=== PATIENT | male | born 1955 | race Asian ===

== ENCOUNTER → 2017-02-18 | Outpatient (CLI) | payer BC ==
[~2017-02-18] MED LIST: FLUT9.9S NAS; HYDR-3138 PO
== END | disposition home or self-care (01) ==
LOC: CFH 06:42
PROVIDERS: ATTEND Specialist
DX: I35.1 Nonrheumatic aortic (valve) insufficiency (principal); I51.7 Cardiomegaly; C34.12 Malignant neoplasm of upper lobe, left bronchus or lung; Z87.891 Personal history of nicotine dependence
CPT/HCPCS: 93306

== ENCOUNTER → 2017-10-02 | Outpatient (CLI) | payer MEDICARE ==
[~2017-10-02] MED LIST changes: -HYDR-3138 PO; +HYDR-3237 PO; +OMNIPAQUE 350 MG/ML, 100ML BOTTLE ONE
== END ==
LOC: CFH 09:19
PROVIDERS: ATTEND Specialist
DX: C34.12 Malignant neoplasm of upper lobe, left bronchus or lung (principal); J90 Pleural effusion, not elsewhere classified; N28.1 Cyst of kidney, acquired
CPT/HCPCS: 71260; 74160; Q9967

== ENCOUNTER → 2017-12-19 | Outpatient (CLI) | payer MEDICARE | LOC: CFH 11:04 | PROVIDERS: ATTEND Specialist | DX: C34.12 Malignant neoplasm of upper lobe, left bronchus or lung (principal) | CPT/HCPCS: 71260; 74160; Q9967 ==

== ENCOUNTER → 2018-03-06 | Outpatient (CLI) | payer MEDICARE | END | disposition home or self-care (01) | LOC: CFH 09:14 | PROVIDERS: ATTEND Internal Medicine | DX: C34.12 Malignant neoplasm of upper lobe, left bronchus or lung (principal) | CPT/HCPCS: 71260; 74160; Q9967 ==

== ENCOUNTER 2018-04-25 06:13 | Emergency (ER) | payer MEDICARE ==
[~2018-04-25] VITALS: Ht 177.8 cm; Wt 79.8 kg
[~2018-04-25 06:13] MED LIST changes: -OMNIPAQUE 350 MG/ML, 100ML BOTTLE ONE
[2018-04-25] MEDS ORDERED: ONDANSETRON ODT 4 MG ONE (06:59)
[2018-04-25] MEDS ORDERED: MORPHINE SULFATE 4 MG/ML, 1ML ONE (06:59)
[2018-04-25] MEDS ORDERED: SODIUM CHLORIDE FLUSH 10ML SYR IVF ONE (07:00)
[2018-04-25] MEDS ORDERED: ONDANSETRON ODT 4 MG PO ONE (07:00)
[2018-04-25] MEDS ORDERED: MORPHINE SULFATE 4 MG/ML, 1ML IVPush PRN (07:00)
[2018-04-25 07:14] LABS: BASOPHILS # (AUTO) 0.03 x10^3/uL (0-0.1); BASOPHILS % (AUTO) 0 % (0-1); EOSINOPHILS # (AUTO) 0.02 x10^3/uL (0-0.4); EOSINOPHILS % (AUTO) 0 % (1-7); LYMPHOCYTES # (AUTO) 0.39 x10^3/uL (1-3.4); LYMPHOCYTES % (AUTO) 6 % (22-44); MD NO; MEAN CORPUSCULAR HEMOGLOBIN 29.8 pg (27.5-34.5); MEAN CORPUSCULAR HGB CONC 33.7 g/dL (33.2-36.2); MEAN CORPUSCULAR VOLUME 88.5 fL (81-97); MEAN PLATELET VOLUME 8.6 fL (7.4-10.4); MONOCYTES # (AUTO) 0.36 x10^3/uL (0.2-0.8); MONOCYTES % (AUTO) 5 % (2-9); NEUTROPHILS # (AUTO) 6.33 x10^3/uL (1.8-6.8); NEUTROPHILS % (AUTO) 89 % (42-75); PLATELET COUNT 159 x10^3/uL (130-400); RED BLOOD COUNT 5.13 x10^6/uL (4.38-5.82)
[2018-04-25 07:17] LABS: ALANINE AMINOTRANSFERASE 33 U/L (12-78); ALBUMIN 3.7 g/dL (3.4-5.0); ANION GAP 8 mmol/L (5-15); CALCIUM 8.8 mg/dL (8.5-10.1); CHLORIDE 112 mmol/L (98-107); CREATININE 1.63 mg/dL (0.7-1.3)
[2018-04-25 07:29] LABS: ALKALINE PHOSPHATASE 76 U/L (45-117); BILIRUBIN,TOTAL 0.6 mg/dL (0.2-1.0)
[2018-04-25] MEDS ORDERED: SODIUM CHLORIDE 0.9% 1,000ML IVBOLUS ONE (08:30)
[2018-04-25 10:46] LABS: MICROSCOPIC NOT IND
[2018-04-25 10:47] LABS: CULTURE INDICATED? NO
[2018-04-25 12:28] VITALS: BP 112/66
== END 2018-04-25 12:30 | disposition home or self-care (01) ==
LOC: ED 08:36
DX: N13.2 Hydronephrosis with renal and ureteral calculous obstruction (principal); N18.9 Chronic kidney disease, unspecified; C34.90 Malignant neoplasm of unspecified part of unspecified bronchus or lung; Z87.891 Personal history of nicotine dependence
CPT/HCPCS: 36415; 74177; 80053; 81003; 82550; 83690; 85025; 93005; 96361; 96374; 99285; J7030; Q0162

== ENCOUNTER 2018-05-08 15:14 | Inpatient (IN) | payer MEDICARE ==
[~2018-05-08] VITALS: Ht 177.8 cm; Wt 68.8 kg
[2018-05-08 16:00] LABS: BASOPHILS # (AUTO) 0.01 x10^3/uL (0-0.1); BASOPHILS % (AUTO) 0 % (0-1); EOSINOPHILS # (AUTO) 0.03 x10^3/uL (0-0.4); EOSINOPHILS % (AUTO) 0 % (1-7); LYMPHOCYTES # (AUTO) 0.31 x10^3/uL (1-3.4); LYMPHOCYTES % (AUTO) 5 % (22-44); MD NO; MEAN CORPUSCULAR HEMOGLOBIN 30.1 pg (27.5-34.5); MEAN CORPUSCULAR HGB CONC 33.7 g/dL (33.2-36.2); MEAN CORPUSCULAR VOLUME 89.4 fL (81-97); MEAN PLATELET VOLUME 8.2 fL (7.4-10.4); MONOCYTES # (AUTO) 0.22 x10^3/uL (0.2-0.8); MONOCYTES % (AUTO) 4 % (2-9); NEUTROPHILS # (AUTO) 5.59 x10^3/uL (1.8-6.8); NEUTROPHILS % (AUTO) 91 % (42-75); PLATELET COUNT 171 x10^3/uL (130-400); RED BLOOD COUNT 5.45 x10^6/uL (4.38-5.82); RED CELL DISTRIBUTION WIDTH 13.8 % (9.4-14.8)
[2018-05-08 16:10] LABS: INTERNATIONAL NORMALIZED RATIO 1.09 (0.93-1.1); PROTHROMBIN TIME 11.2 Seconds (9.6-11.5)
[2018-05-08 16:13] LABS: ALBUMIN 3.7 g/dL (3.4-5.0); ANION GAP 6 mmol/L (5-15); CALCIUM 8.9 mg/dL (8.5-10.1); CHLORIDE 109 mmol/L (98-107)
[2018-05-08 16:19] LABS: ALANINE AMINOTRANSFERASE 29 U/L (12-78); ALKALINE PHOSPHATASE 94 U/L (45-117); BILIRUBIN,TOTAL 0.4 mg/dL (0.2-1.0); TOTAL PROTEIN 7.7 g/dL (6.4-8.2)
[2018-05-08] MEDS ORDERED: OMNIPAQUE 350 MG/ML, 100ML BOTTLE ONE (16:53)
[2018-05-08] MEDS ORDERED: HEPARIN 25,000 UNITS/500ML PMX 500 ML ONE (17:08)
[2018-05-08] MEDS ORDERED: HEPARIN 5,000 UNITS/ML, 1ML ONE (17:11)
[2018-05-08] MEDS ORDERED: HEPARIN 5,000 UNITS/ML, 1ML IV ONE ×2 (17:30→19:30)
[2018-05-08] MEDS ORDERED: HEPARIN 25,000 UNITS/500ML PMX 500 ML IV PRN (17:30)
[2018-05-08] MEDS ORDERED: HEPARIN 5,000 UNITS/ML, 1ML IV PRN (17:30)
[2018-05-08] MEDS ORDERED: OSIM80TA PO (18:08)
[2018-05-08] MEDS ORDERED: MULT-257 PO (18:09)
[2018-05-08] MEDS ORDERED: CHOL400C PO (18:10)
[2018-05-08] MEDS ORDERED: ONDANSETRON 2MG/ML, 2ML IVPush PRN (19:00)
[2018-05-08] MEDS ORDERED: TEMAZEPAM 15 MG CAPSULE PO PRN (19:00)
[2018-05-08] MEDS ORDERED: morphine SULFATE 10 MG/ML, 1ML IVPush PRN (19:00)
[2018-05-08] MEDS ORDERED: LABETALOL 5MG/ML, 20ML IVPush PRN (19:00)
[2018-05-08] MEDS ORDERED: ONDANSETRON ODT 4 MG PO PRN (19:00)
[2018-05-08] MEDS ORDERED: ENALAPRILAT 1.25 MG/ML, 2ML IVPush PRN (19:00)
[2018-05-08] MEDS ORDERED: ACETAMINOPHEN 325 MG TABLET PO PRN (19:00)
[2018-05-08 19:19] VITALS: BP 142/98
[2018-05-08 22:33] VITALS: BP 142/98
[2018-05-09 00:09] VITALS: BP 129/88
[2018-05-09] MEDS: HEPARIN 5,000 UNITS/ML, 1ML IV PRN (00:31)
[2018-05-09 07:00] VITALS: BP 122/85
[2018-05-09 07:17] LABS: BASOPHILS # (AUTO) 0.01 x10^3/uL (0-0.1); BASOPHILS % (AUTO) 0 % (0-1); EOSINOPHILS # (AUTO) 0.15 x10^3/uL (0-0.4); EOSINOPHILS % (AUTO) 3 % (1-7); LYMPHOCYTES % (AUTO) 13 % (22-44); MD NO; MEAN CORPUSCULAR HEMOGLOBIN 29.9 pg (27.5-34.5); MEAN CORPUSCULAR HGB CONC 33.8 g/dL (33.2-36.2); MEAN CORPUSCULAR VOLUME 88.5 fL (81-97); MEAN PLATELET VOLUME 8.2 fL (7.4-10.4); MONOCYTES # (AUTO) 0.46 x10^3/uL (0.2-0.8); MONOCYTES % (AUTO) 9 % (2-9); NEUTROPHILS # (AUTO) 4.09 x10^3/uL (1.8-6.8); NEUTROPHILS % (AUTO) 76 % (42-75); PLATELET COUNT 166 x10^3/uL (130-400); RED BLOOD COUNT 5.11 x10^6/uL (4.38-5.82); RED CELL DISTRIBUTION WIDTH 13.8 % (9.4-14.8)
[2018-05-09 07:26] LABS: TROPONIN I 0.364 ng/mL (0.000-0.045)
[2018-05-09 07:28] LABS: ALANINE AMINOTRANSFERASE 25 U/L (12-78); ALBUMIN 3.3 g/dL (3.4-5.0); ANION GAP 6 mmol/L (5-15); CALCIUM 8.5 mg/dL (8.5-10.1); CHLORIDE 111 mmol/L (98-107); CREATININE 1.09 mg/dL (0.7-1.3)
[2018-05-09 07:30] LABS: ALKALINE PHOSPHATASE 84 U/L (45-117); BILIRUBIN,TOTAL 0.8 mg/dL (0.2-1.0); TOTAL PROTEIN 6.9 g/dL (6.4-8.2)
[2018-05-09] MEDS ORDERED: PIPERACILLIN/TAZO/PMX 3.375GM 50 ML IV SCH (09:00)
[2018-05-09] MEDS: LINEZOLID PMX 600MG/300ML 300 ML IV SCH (12:37)
[2018-05-09 13:04] VITALS: BP 121/80
[2018-05-09] MEDS: HEPARIN 25,000 UNITS/500ML PMX 500 ML IV PRN (17:27)
[2018-05-09] MEDS: PIPERACILLIN/TAZO/PMX 3.375GM 50 ML IV SCH ×2 (17:28→22:42)
[2018-05-09 20:38] VITALS: BP 110/71
[2018-05-10] MEDS: LINEZOLID PMX 600MG/300ML 300 ML IV SCH ×2 (00:31→12:04)
[2018-05-10 01:10] VITALS: BP 128/82
[2018-05-10] MEDS: PIPERACILLIN/TAZO/PMX 3.375GM 50 ML IV SCH ×4 (04:34→22:37)
[2018-05-10 08:39] VITALS: BP 127/82
[2018-05-10] MEDS ORDERED: TAGRISSO 80 MG PO SCH (09:00)
[2018-05-10 10:50] LABS: CLOSTRIDIUM DIFFICILE ANTIGEN NEGATIVE; CLOSTRIDIUM DIFFICILE TOXIN NEGATIVE (Negative)
[2018-05-10] MEDS: LOPERAMIDE 2 MG CAPSULE PO PRN ×2 (12:04→18:51)
[2018-05-10] MEDS: TAGRISSO 80 MG PO SCH (12:26)
[2018-05-10 14:01] VITALS: BP 119/70
[2018-05-10] MEDS: HEPARIN 25,000 UNITS/500ML PMX 500 ML IV PRN (17:04)
[2018-05-10 19:13] VITALS: BP 110/64
[2018-05-11] MEDS: LINEZOLID PMX 600MG/300ML 300 ML IV SCH ×2 (00:16→11:53)
[2018-05-11 02:07] VITALS: BP 124/79
[2018-05-11] MEDS: PIPERACILLIN/TAZO/PMX 3.375GM 50 ML IV SCH ×3 (04:39→16:36)
[2018-05-11 06:02] LABS: BASOPHILS % (AUTO) 0 % (0-1); EOSINOPHILS # (AUTO) 0.21 x10^3/uL (0-0.4); EOSINOPHILS % (AUTO) 5 % (1-7); LYMPHOCYTES # (AUTO) 0.72 x10^3/uL (1-3.4); LYMPHOCYTES % (AUTO) 19 % (22-44); MD NO; MEAN CORPUSCULAR HEMOGLOBIN 29.8 pg (27.5-34.5); MEAN CORPUSCULAR HGB CONC 33.5 g/dL (33.2-36.2); MEAN CORPUSCULAR VOLUME 88.8 fL (81-97); MEAN PLATELET VOLUME 7.9 fL (7.4-10.4); MONOCYTES # (AUTO) 0.43 x10^3/uL (0.2-0.8); MONOCYTES % (AUTO) 11 % (2-9); NEUTROPHILS # (AUTO) 2.46 x10^3/uL (1.8-6.8); NEUTROPHILS % (AUTO) 65 % (42-75); PLATELET COUNT 169 x10^3/uL (130-400); RED BLOOD COUNT 4.98 x10^6/uL (4.38-5.82); RED CELL DISTRIBUTION WIDTH 13.4 % (9.4-14.8)
[2018-05-11 06:13] LABS: ALBUMIN 2.9 g/dL (3.4-5.0); ANION GAP 7 mmol/L (5-15); CALCIUM 8.4 mg/dL (8.5-10.1); CHLORIDE 110 mmol/L (98-107)
[2018-05-11 06:16] LABS: ALANINE AMINOTRANSFERASE 24 U/L (12-78); ALKALINE PHOSPHATASE 73 U/L (45-117); BILIRUBIN,TOTAL 0.7 mg/dL (0.2-1.0); CREATININE 1.08 mg/dL (0.7-1.3); TOTAL PROTEIN 6.5 g/dL (6.4-8.2)
[2018-05-11 06:45] VITALS: BP 132/88
[2018-05-11] MEDS: HEPARIN 5,000 UNITS/ML, 1ML IV PRN (07:08)
[2018-05-11] MEDS: TAGRISSO 80 MG PO SCH (09:54)
[2018-05-11] MEDS: LOPERAMIDE 2 MG CAPSULE PO PRN (10:00)
[2018-05-11 12:54] VITALS: BP 123/77
[2018-05-11] MEDS ORDERED: APIXABAN 5 MG TABLET PO SCH (14:00)
[2018-05-11] MEDS ORDERED: APIX5TAB PO ×3 (14:08→14:10)
[2018-05-13] MEDS ORDERED: TAGRISSO 80 MG PO SCH (09:00)
[2018-05-18] MEDS ORDERED: APIXABAN 5 MG TABLET PO SCH (09:00)
== END 2018-05-11 18:04 | disposition home or self-care (01) | DRG 280 ==
LOC: ED 16:55 → EDIP 17:34 → 5SO 19:05
PROVIDERS: ADMIT Hospitalist; ATTEND Hospitalist
DX: I21.4 Non-ST elevation (NSTEMI) myocardial infarction (principal); I26.92 Saddle embolus of pulmonary artery without acute cor pulmonale; J96.01 Acute respiratory failure with hypoxia; C34.90 Malignant neoplasm of unspecified part of unspecified bronchus or lung; J91.0 Malignant pleural effusion; N28.9 Disorder of kidney and ureter, unspecified; Z87.442 Personal history of urinary calculi; Z87.891 Personal history of nicotine dependence; Z79.01 Long term (current) use of anticoagulants
CPT/HCPCS: 36415; 71045; 71275; 80053; 81240; 81241; 83880; 84484; 85025; 85300; 85303; 85306; 85520; 85610; 85613; 85670; 85705; 85730; 85732; 86147; 87040; 87324; 93005; 93306; 96374; 99285; G0378; J1644; J2020; J2543; Q9967

== ENCOUNTER → 2018-06-05 | Outpatient (CLI) | payer MEDICARE ==
[~2018-06-05] MED LIST changes: +APIX5TAB PO; +CHOL400C PO; +MULT-257 PO; +MULT-6 PO; +OMNIPAQUE 350 MG/ML, 100ML BOTTLE ONE; +OSIM80TA PO
== END | disposition home or self-care (01) ==
LOC: CFH 12:26
PROVIDERS: ATTEND Specialist
DX: N28.1 Cyst of kidney, acquired (principal); C34.12 Malignant neoplasm of upper lobe, left bronchus or lung; I26.99 Other pulmonary embolism without acute cor pulmonale
CPT/HCPCS: 71260; 74160; Q9967

== ENCOUNTER 2018-06-19 10:24 | Day surgery (SDC) | payer MEDICARE ==
[~2018-06-19] VITALS: Ht 177.8 cm; Wt 77.9 kg
[~2018-06-19 10:24] MED LIST changes: -MULT-6 PO; -OMNIPAQUE 350 MG/ML, 100ML BOTTLE ONE
[2018-06-19] MEDS ORDERED: APIX5TAB PO (11:08)
[2018-06-19] MEDS ORDERED: MULT-6 PO (11:08)
[2018-06-19 11:10] VITALS: BP 126/81
[2018-06-19] MEDS ORDERED: SODIUM CHLORIDE 0.9% 1,000 ML IV SCH (11:30)
[2018-06-19] MEDS ORDERED: MIDAZOLAM 1 MG/ML, 5ML ONE (12:23)
[2018-06-19] MEDS ORDERED: FENTANYL PF 100 MCG/2ML ONE ×2 (12:23)
[2018-06-19] MEDS ORDERED: FLUMAZENIL 0.1 MG/1 ML, 5ML ONE (12:23)
[2018-06-19] MEDS ORDERED: NALOXONE 1 MG/ML, 2ML ONE (12:24)
[2018-06-19] MEDS ORDERED: LIDOCAINE-MPF 1%, 5ML ONE (12:27)
== END 2018-06-19 14:35 | disposition home or self-care (01) ==
LOC: OUT 10:24 → EDSTATUS 12:30 → OUT 14:35
PROVIDERS: ATTEND Thoracic Surgery (Cardiothoracic Vascular Surgery)
DX: J90 Pleural effusion, not elsewhere classified (principal); J85.2 Abscess of lung without pneumonia; Z85.118 Personal history of other malignant neoplasm of bronchus and lung; Z98.890 Other specified postprocedural states; Z79.899 Other long term (current) drug therapy; Z87.891 Personal history of nicotine dependence; Z86.711 Personal history of pulmonary embolism; Z87.442 Personal history of urinary calculi; Z83.3 Family history of diabetes mellitus
CPT/HCPCS: 49405; 87070; 87075; 87102; 87116; 87205; 87206; 99156; 99157; J2250; J3010; J7030; 75989; J2310

== ENCOUNTER → 2018-07-30 | Outpatient (CLI) | payer MEDICARE ==
[~2018-07-30] MED LIST changes: +MULT-6 PO; +OMNIPAQUE 350 MG/ML, 100ML BOTTLE ONE
== END | disposition home or self-care (01) ==
LOC: CFH 11:12
PROVIDERS: ATTEND Specialist
DX: C34.12 Malignant neoplasm of upper lobe, left bronchus or lung (principal)
CPT/HCPCS: 71260; 74160; 82565; Q9967

== ENCOUNTER → 2018-11-07 | Outpatient (CLI) | payer MEDICARE | END | disposition home or self-care (01) | LOC: RAD 11:53 | PROVIDERS: ATTEND Specialist | DX: C34.12 Malignant neoplasm of upper lobe, left bronchus or lung (principal); Z87.891 Personal history of nicotine dependence | CPT/HCPCS: 71260; 74160; Q9967 ==

== ENCOUNTER 2019-02-18 11:39 | Outpatient (CLI) | payer MEDICARE ==
[~2019-02-18 11:39] MED LIST changes: -OMNIPAQUE 350 MG/ML, 100ML BOTTLE ONE
[2019-02-18] MEDS ORDERED: OMNIPAQUE 350 MG/ML, 100ML BOTTLE ONE (15:18)
== END 2019-02-18 23:59 | disposition home or self-care (01) ==
LOC: CFH 11:39
PROVIDERS: ATTEND Specialist
DX: C34.12 Malignant neoplasm of upper lobe, left bronchus or lung (principal); N28.1 Cyst of kidney, acquired; J98.4 Other disorders of lung
CPT/HCPCS: 71260; 74160; Q9967

== ENCOUNTER 2019-07-07 11:42 | Outpatient (CLI) | payer MEDICARE ==
[2019-07-07] MEDS ORDERED: OMNIPAQUE 350 MG/ML, 100ML BOTTLE ONE (15:09)
== END 2019-07-07 23:59 | disposition home or self-care (01) ==
LOC: CFH 11:42
PROVIDERS: ATTEND Specialist
DX: C34.12 Malignant neoplasm of upper lobe, left bronchus or lung (principal); J90 Pleural effusion, not elsewhere classified; N28.1 Cyst of kidney, acquired; K76.89 Other specified diseases of liver; Z87.891 Personal history of nicotine dependence
CPT/HCPCS: 71260; 74160; 82565; Q9967

== ENCOUNTER 2019-10-13 09:33 | Outpatient (CLI) | payer MEDICARE ==
[2019-10-13] MEDS ORDERED: OMNIPAQUE 350 MG/ML, 100ML BOTTLE ONE (12:30)
== END 2019-10-13 23:59 | disposition home or self-care (01) ==
LOC: CFH 09:33
PROVIDERS: ATTEND Specialist
DX: C34.12 Malignant neoplasm of upper lobe, left bronchus or lung (principal); N28.1 Cyst of kidney, acquired; J98.4 Other disorders of lung; M51.36 Other intervertebral disc degeneration, lumbar region
CPT/HCPCS: 71260; 74160; 82565; Q9967

== ENCOUNTER 2020-01-14 11:59 | Outpatient (CLI) | payer MEDICARE ==
[2020-01-14] MEDS ORDERED: OMNIPAQUE 350 MG/ML, 100ML BOTTLE ONE (12:29)
== END 2020-01-14 23:59 | disposition home or self-care (01) ==
LOC: CFH 11:59
PROVIDERS: ATTEND Specialist
DX: C34.12 Malignant neoplasm of upper lobe, left bronchus or lung (principal)
CPT/HCPCS: 71260; 74160; Q9967

== ENCOUNTER 2020-02-11 07:17 | Outpatient (CLI) | payer MEDICARE | END 2020-02-11 23:59 | disposition home or self-care (01) | LOC: ROC 07:17 | PROVIDERS: ATTEND Radiology Radiation Oncology | DX: C34.12 Malignant neoplasm of upper lobe, left bronchus or lung (principal); I26.92 Saddle embolus of pulmonary artery without acute cor pulmonale | CPT/HCPCS: 99214; G0463 ==

== ENCOUNTER 2020-05-02 12:59 | Outpatient (CLI) | payer MEDICARE ==
[2020-05-02] MEDS ORDERED: OMNIPAQUE 350 MG/ML, 100ML BOTTLE ONE (13:57)
== END 2020-05-02 23:59 | disposition home or self-care (01) ==
LOC: CFH 12:59
PROVIDERS: ATTEND Specialist
DX: C34.12 Malignant neoplasm of upper lobe, left bronchus or lung (principal); J90 Pleural effusion, not elsewhere classified; R91.8 Other nonspecific abnormal finding of lung field; K76.9 Liver disease, unspecified
CPT/HCPCS: 71260; 74160; Q9967

== ENCOUNTER → 2020-05-26 | Outpatient (CLI) | payer MEDICARE | END | disposition home or self-care (01) | LOC: ROC 08:59 | PROVIDERS: ATTEND Radiology Radiation Oncology | DX: C34.12 Malignant neoplasm of upper lobe, left bronchus or lung (principal) | CPT/HCPCS: 99212; G0463 ==